=== PATIENT | male | born 1945 | race Caucasian/White ===

== ENCOUNTER 2018-02-01 22:36 | Emergency (ER) | payer MEDICARE, OTHER, SELFPAY ==
[2018-02-01 22:40] VITALS: BP 138/80; PULSE 72; RESP 19; TEMP 36.6; O2SAT 100; BMI 26.2
--- NOTE | 2018-02-01 23:24 | ED_ITS ---
HPI - Abdominal Pain General Chief Complaint: Abdominal Pain Stated Complaint: Abd Pain Time Seen by Provider: 02/01/18 22:49 History of Present Illness HPI narrative: HPI 72-year-old male with history of BPH presents for evaluation of resolved severe bilateral lower abdominal/suprapubic cramping that occurred while he was seated. Patient present to the emergency department for evaluation pain, upon being given a warm blanket the patient felt an urge to defecate, he went to the bathroom past a large bowel movement and had near complete complete resolution of his symptoms. Prior to presentation the patient attempted to stool at home and attempt to relieve the symptoms, the patient is unable to stool but while bearing down heavily he had a brief period of LOC with immediate return to baseline level of consciousness. Denies nausea and vomiting. Denies dysuria and urinary frequency. Denies a history of atrial fibrillation. No prior abdominal surgeries. M/S/F/SocHx notable for: please see HPI; remainder reviewed with patient and in chart. ROS: Negative constitutional, eye, cardiovascular, pulmonary, GI, , MSK, skin , neurologic, psychiatric, endocrine unless noted in the HPI. Exam Gen: Pleasant, non-toxic appearing, resting comfortably. HEENT: NC, AT, PEERL, EOMI. Resp: Clear to auscultation bilaterally, normal work of breathing, no accessory muscle usage. Card: Regular rate and rhythm with no murmurs, rubs, or gallops, extremities warm and well perfused. GI: Non-tender to palpation throughout all quadrants, no focal tenderness at McBurney's point, negative Garvey's sign, non-distended, no rebound or guarding. : No suprapubic tenderness to palpation. MSK: No visible deformities, strength and tone without visually appreciable deficit. Skin: Normal color with no visible lesions. Neuro: AO x 3, no facial asymmetry, vision and hearing WNL. Psych: Mood and affect appropriate. MDM Previous chart, nursing note, labs, imaging, and vitals reviewed. A: 72-year-old male with a history of BPH presents for evaluation of resolved severe bilateral cramping abdominal pain, pain resolved after a large bowel movement, also had an episode of syncope while attempting to stool prior to presentation. DDx & Evaluation: patient asymptomatic at time of evaluation, patient states that he feels significantly improved, declining further evaluation. Reviewed with the patient was a possibility that his symptoms represent a serious intrabdominal process or cardiac problem. Mesenteric ischemia, AAA, dissection, intermittent volvulus, or another acute process remain on the differential. Alternatively, the patient symptoms may be secondary to cramping with a vasovagal syncope episode at home. With respect to the patient's cardiac problems reviewed with the patient was possibility of an intermittent heart block, arrhythmia, or other serious problem that would be missed without for evaluation. The patient declined further evaluation care, head intact insight and judgment will return to care as needed. Impression: resolved abdominal pain (please reference below for remainder of encounter information) [facility]LY [facility] Social History Smoking Status: Never smoker Exam Initial Vital Signs Initial Vital Signs: Vital Signs Temperature 97.9 F 02/01/18 22:40 Pulse Rate 72 02/01/18 22:40 Respiratory Rate 19 02/01/18 22:40 Blood Pressure 138/80 H 02/01/18 22:40 Pulse Oximetry 100 02/01/18 22:40 Course Orders Ordered: ED Orders 02/01/18 22:56 Urine Microscopic Stat Vital Signs - 8 hr 02/01/18 22:40 Temperature 97.9 F Pulse Rate 72 Respiratory Rate 19 Blood Pressure 138/80 H Pulse Oximetry 100
[2018-02-01 23:40] LABS: Bacteria Urine Few (2-10); RBC Urine 0-1/HPF (0-5/HPF); WBC Urine 30-100/HPF (0-5/HPF)
[2018-02-01 23:41] LABS: Culture Indicated Urine Specimen Cultured; Squamous Epithelial Cell Urine 0-1 /HPF
[2018-02-01 23:52] VITALS: BP 135/77; PULSE 78; RESP 16; O2SAT 97
== END 2018-02-01 23:52 | disposition home or self-care (01) ==
PROVIDERS: Emergency Provider Emergency Medicine
DX: R10.9 Unspecified abdominal pain (principal)
CPT/HCPCS: 81003; 81015; 87086; 99282

== ENCOUNTER → 2020-02-16 12:29 | Outpatient (CLI) | payer MEDICARE, OTHER, SELFPAY ==
--- NOTE | 2020-02-16 | DI.RAD.S_ITS ---
PROCEDURE: XR FOOT LT MIN 3V INDICATIONS: LEFT FOOT PAIN TECHNIQUE: 3 views of the foot were acquired. COMPARISON: None. FINDINGS: Bones: No fractures or dislocations. No suspicious bony lesions. Age-appropriate bony degenerative changes are seen. Plantar and Achilles calcaneal spurs are seen. Incidental note is made of an accessory ossicle, an os peroneum. Soft tissues: No tibiotalar joint effusion. Achilles tendon appears normal. IMPRESSION: Age-appropriate degenerative changes are seen, including plantar and Achilles calcaneal spurs. Dictated by: Eugenio Tarango M.D. on 02/16/2020 at 12:02 Approved by: Eugenio Tarango M.D. on 02/16/2020 at 12:03
== END ==
PROVIDERS: PCP Internal Medicine; Referring Provider Physician Assistant; Visit Provider Physician Assistant
DX: M79.672 Pain in left foot (principal); M77.32 Calcaneal spur, left foot
CPT/HCPCS: 73630

== ENCOUNTER → 2020-04-08 18:32 | Outpatient (ROUT) | payer MEDICARE, OTHER, SELFPAY | PROVIDERS: PCP Internal Medicine; Visit Provider Internal Medicine | DX: N39.0 Urinary tract infection, site not specified (principal) | CPT/HCPCS: 87077; 87086; 87186 ==

== ENCOUNTER → 2020-06-27 19:01 | Outpatient (ROUT) | payer MEDICARE, OTHER, SELFPAY ==
[2020-06-27 19:42] LABS: Add Manual Diff / Slide Review NO; Basophils Absolute Auto 100 /uL (0-100); Basophils Percent Auto 0.6 % (0-2); Eosinophils Absolute Auto 300 /uL (0-450); Eosinophils Percent Auto 3.4 % (2-4); Hematocrit 38.2 % (41-53); Hemoglobin 12.7 g/dL (13.5-17.5); Lymphocytes Absolute Auto 2300 /uL (1100-4500); Mean Corpuscular HGB Conc 33.2 % (30-36); Mean Corpuscular Volume 90.4 fL (80-100); Monocytes Absolute Auto 700 /uL (0-900); Monocytes Percent Auto 6.5 % (3-14); Neutrophils Absolute Auto 6700 /uL (1500-7000); Neutrophils Percent Auto 66.5 % (50-75); Platelet Count 394 X10^3/uL (150-400); Red Blood Cell Count 4.23 X10^6/uL (4.5-5.9); Red Cell Distribution Width 15.6 % (11.6-14.8); White Blood Cell Count 10.1 X10^3/uL (4.5-11.0)
[2020-06-27 19:50] LABS: Alanine Aminotransferase 23 IU/L (<50); Albumin Globulin Ratio 1.3 (1.0-2.8); Alkaline Phosphatase 69 U/L (38-126); Aspartate Aminotransferase 27 IU/L (17-59); BUN Creatinine Ratio 24.1 (6-22); Bilirubin Total 0.5 mg/dL (0.2-1.3); Blood Urea Nitrogen 28 mg/dL (9-20); Calcium 10.1 mg/dL (8.4-10.2); Carbon Dioxide 26 mmol/L (22-32); Chloride 106 mmol/L (98-107); Cholesterol 207 mg/dL (140-199); Estimated Glomerular Filt Rate > 60.0 mL/min (>60); Globulin 3.1 g/dL (1.7-4.1); Glucose 79 mg/dL (80-110); HDL Cholesterol 55 mg/dL (40-60); HEMOLYSIS < 15 (0-50); LDL Cholesterol Calculated 134 mg/dL (<100); Potassium 4.3 mmol/L (3.4-5.1); Sodium 141 mmol/L (137-145); Total Protein 7.1 g/dL (6.3-8.2); Triglycerides 88 mg/dL (35-150)
[2020-06-27 20:20] LABS: TSH w/ Reflex to FT4 2.45 uIU/mL (0.47-4.68)
== END ==
PROVIDERS: PCP Internal Medicine; Visit Provider Internal Medicine
DX: N39.0 Urinary tract infection, site not specified (principal); R53.83 Other fatigue; N41.0 Acute prostatitis; E78.2 Mixed hyperlipidemia
CPT/HCPCS: 80053; 80061; 84443; 85025; 87077; 87086; 87186

== ENCOUNTER → 2020-11-13 16:34 | Outpatient (CLI) | payer MEDICARE, OTHER, SELFPAY ==
--- NOTE | 2020-11-13 16:38 | DI.RAD.S_ITS ---
PROCEDURE: XR ABDOMEN 1V INDICATIONS: NO BM X7 DAYS, NOT PASSING GAS, NAUSEA,HEAVING, R/O ILEUS TECHNIQUE: One view of the abdomen acquired. COMPARISON: None. FINDINGS: Surgical changes and devices: None. Bowel: Bowel gas pattern is normal. Soft tissues: Calcifications project over the bilateral kidneys. Visualized solid organ contours appear normal in size. Bones: No suspicious bony lesions. IMPRESSION: 1. No evidence of bowel obstruction. 2. Calcifications projecting over the bilateral kidneys. Dictated by: Samir Dooley M.D. on 11/13/2020 at 16:02 Approved by: Samir Dooley M.D. on 11/13/2020 at 16:02
== END ==
PROVIDERS: Referring Provider Nurse Practitioner Family; Visit Provider Nurse Practitioner Family
DX: R11.0 Nausea (principal); E86.0 Dehydration; R53.83 Other fatigue; N28.89 Other specified disorders of kidney and ureter
CPT/HCPCS: 74018

== ENCOUNTER → 2022-06-02 08:58 | Outpatient (CLI) | payer MEDICARE, OTHER, SELFPAY ==
--- NOTE | 2022-06-02 09:01 | DI.MRI.S_ITS ---
PROCEDURE: MR LUMBAR SPINE WO CON INDICATIONS: Low back pain, unspecified TECHNIQUE: Noncontrast sagittal T1 spin echo and T2 fast echo, sagittal STIR, and T2 fast spin echo through the lumbar spine. In cases with scoliosis, additional coronal T2 fast spin echo may be performed. COMPARISON: None. FINDINGS: Image quality: Excellent. Alignment and Curvature: There is normal bony alignment. Bone Marrow: Modic type 1 edematous endplate changes noted at L4-5. Min transitional anatomy present. There is partial lumbarization of the S1 vertebral body. Spinal Cord: Conus medullaris terminates at the L1 level. Visualized cord demonstrates normal signal and size. Paraspinous Soft Tissues: No paravertebral masses. T12-L1: Normal appearance. L1-L2: Normal appearance. L2-L3: Normal appearance. L3-L4: Disc space narrowing and circumferential bulge with hypertrophic facet joints results in mild central stenosis. Mild bilateral foraminal stenosis greater on the right L4-L5: Disc space narrowing and surface bulge with hypertrophic facet joints and ligamentum flavum laxity results in severe central stenosis with associated nerve root redundancy probable edema. Moderate bilateral foraminal stenosis L5-S1: Disc space narrowing with circumferential disc bulge and hypertrophic facet joints results in moderate central stenosis. Moderate bilateral foraminal stenosis IMPRESSION: Multilevel degenerative disc disease and arthropathy results in varying degrees of central and foraminal stenosis including severe central stenosis L4-5 Approved by: Cleve Almonte M.D. on 06/02/2022 at 10:18
== END ==
PROVIDERS: PCP Student in an Organized Health Care Education/Training Program; Referring Provider Physical Medicine & Rehabilitation Pain Medicine; Visit Provider Physical Medicine & Rehabilitation Pain Medicine
DX: M51.36 Other intervertebral disc degeneration, lumbar region (principal); M54.50 Low back pain, unspecified; M48.061 Spinal stenosis, lumbar region without neurogenic claudication
CPT/HCPCS: 72148

== ENCOUNTER → 2023-08-28 15:31 | Outpatient (CLI) | payer MEDICARE, OTHER, SELFPAY ==
--- NOTE | 2023-08-28 15:34 | DI.CT.S_ITS ---
PROCEDURE: CT LUMBAR SPINE WO CON INDICATIONS: Spinal stenosis, lumbar region TECHNIQUE: Noncontrast 0.8 mm thick sections acquired from the T12 level to the sacrum. Sagittal and coronal reformats were constructed. For radiation dose reduction, the following was used: automated exposure control. COMPARISON: [facility], RF, LUMBAR TRANSFORAMINAL MAURIZIO, 07/23/2023, 10:46. [facility], CT, CT KUB, 10/02/2022, 11:57. [facility], CR, XR LUMBAR SPINE WITH OBLIQUES PLUS FLEXION EXTENSION, 05/16/2022, 10:45. FINDINGS: Image quality: This examination is limited by involuntary motion artifact. Bones: There is normal bony alignment. No acute vertebral body compression fractures. No suspicious lytic or blastic bony lesions. No pars defects. This patient has transitional lumbar anatomy. For the purposes of this examination, the level with the last pair of ribs is considered to be T12. By this numbering scheme, there is a transitional disc seen at S1-S2. T12-L1: Bridging anterior osteophytes are seen. No significant neural foraminal or central canal narrowing can be seen. L1-L2: There are bridging anterior osteophytes seen. No significant neural foraminal or central canal narrowing can be seen. L2-L3: Bridging anterior osteophytes are seen at this level. Mild generalized disc bulge is seen. Mild facet joint hypertrophy is seen. There is mild left-sided and [id number] right-sided neural foraminal narrowing. No significant central canal narrowing is seen. L3-L4: Mild loss of disc height is seen. Mild to moderate disc bulge is seen at this level. There is a superimposed central disc protrusion. Mild to moderate facet hypertrophy is seen. There is at least moderate right-sided and [id number] left-sided neural foraminal narrowing. Moderate central canal narrowing is seen. L4-L5: At least moderate loss of disc height is seen. Endplate irregularity and sclerosis can be seen. At least moderate disc bulge is seen at this level. There is at least moderate facet hypertrophy seen. At least moderate bilateral neural foraminal narrowing can be seen. Moderate to severe central canal narrowing is seen. L5-S1: At least moderate loss of disc height is seen at this level. At least moderate disc bulge is seen. Posteriorly directed endplate osteophytes are seen. Moderate facet hypertrophy can be seen. Moderate to severe bilateral neural foraminal narrowing is seen. Moderate central canal narrowing is seen. S1-S2: A transitional, rudimentary disc can be seen. Soft tissues: No retroperitoneal masses or hematomas. Visualized aorta is normal in caliber. Atherosclerotic calcification is noted. Colonic diverticulosis is seen, without findings of active diverticulitis. Both kidneys demonstrate nonobstructing stones. Within the left proximal ureter, there is an obstructing stone measuring 4-5 mm and 900 Hounsfield units, as on series 2, image 233. Moderate associated left-sided hydronephrosis is seen. IMPRESSION: Multiple levels of lumbar spine degenerative change can be seen, which are worst inferiorly. Note is made of an obstructing stone within the left proximal ureter measuring 4-5 mm, with associated left-sided hydronephrosis. This is new compared to the CT dated 10/02/2022. Transitional lumbar anatomy, with a rudimentary disc seen at the S1-S2 level. Additional findings: Nonobstructing bilateral renal stones Diverticulosis, without active diverticulitis Note: Case discussed by telephone with Dr. Chandra at 6:15 p.m. Frio time on August 28, 2023. Dictated by: Eugenio Tarango M.D. on 08/28/2023 at 17:08 Approved by: Eugenio Tarango M.D. on 08/28/2023 at 17:19
== END ==
PROVIDERS: PCP Student in an Organized Health Care Education/Training Program; Referring Provider Orthopaedic Surgery Orthopaedic Surgery of the Spine; Visit Provider Orthopaedic Surgery Orthopaedic Surgery of the Spine
DX: M48.062 Spinal stenosis, lumbar region with neurogenic claudication (principal); M47.816 Spondylosis without myelopathy or radiculopathy, lumbar region; M47.817 Spondylosis without myelopathy or radiculopathy, lumbosacral region; N13.2 Hydronephrosis with renal and ureteral calculous obstruction; K57.90 Diverticulosis of intestine, part unspecified, without perforation or abscess without bleeding
CPT/HCPCS: 72131

== ENCOUNTER → 2023-10-24 13:45 | Outpatient (CLI) | payer MEDICARE, OTHER, SELFPAY ==
--- NOTE | 2023-10-24 13:51 | DI.RAD.S_ITS ---
PROCEDURE: XR CHEST 2V INDICATIONS: COUGH TECHNIQUE: 2 views of the chest were acquired. COMPARISON: None. FINDINGS: Surgical changes and devices: None. Lungs and pleura: Lungs are clear. No pleural effusions or pneumothorax. Mediastinum: Mediastinal contours are normal. Heart size is normal. Bones and chest wall: No suspicious bony abnormalities. Soft tissues appear unremarkable. IMPRESSION: No acute cardiopulmonary abnormality is seen. Dictated by: Kalia Membreno M.D. on 10/24/2023 at 16:08 Approved by: Kalia Membreno M.D. on 10/24/2023 at 16:08
== END ==
LOC: RAD 13:49
PROVIDERS: PCP Student in an Organized Health Care Education/Training Program; Referring Provider Nurse Practitioner Family; Visit Provider Nurse Practitioner Family
DX: R05.9 Cough, unspecified (principal); R53.81 Other malaise
CPT/HCPCS: 71046

== ENCOUNTER → 2023-12-16 10:51 | Outpatient (CLI) | payer MEDICARE, OTHER, SELFPAY ==
[2023-12-16 11:38] LABS: Add Manual Diff / Slide Review NO; Basophils Absolute Auto 100 /uL (0-100); Basophils Percent Auto 0.8 % (0-2); Eosinophils Absolute Auto 200 /uL (0-450); Eosinophils Percent Auto 1.9 % (2-4); Hematocrit 37.7 % (41-53); Hemoglobin 12.6 g/dL (13.5-17.5); Lymphocytes Absolute Auto 2300 /uL (1100-4500); Lymphocytes Percent Auto 23.5 % (25-40); Mean Corpuscular HGB Conc 33.5 % (30-36); Mean Corpuscular Hemoglobin 30.2 PG (26-34); Mean Corpuscular Volume 90.2 fL (80-100); Monocytes Absolute Auto 600 /uL (0-900); Monocytes Percent Auto 6.3 % (3-14); Neutrophils Absolute Auto 6600 /uL (1500-7000); Neutrophils Percent Auto 67.5 % (50-75); Platelet Count 603 X10^3/uL (150-400); Red Blood Cell Count 4.18 X10^6/uL (4.5-5.9); Red Cell Distribution Width 15.1 % (11.6-14.8); White Blood Cell Count 9.8 X10^3/uL (4.5-11.0)
[2023-12-16 11:39] LABS: Hemoglobin A1C% w Est Avg Glu 5.4 % (4.0-6.0)
[2023-12-16 12:10] LABS: BUN Creatinine Ratio 17.3 (6-22); Blood Urea Nitrogen 24 mg/dL (9-20); Calcium 10.3 mg/dL (8.4-10.2); Carbon Dioxide 24 mmol/L (22-32); Chloride 108 mmol/L (98-107); Estimated Glomerular Filt Rate 53 mL/min (>60); Glucose 89 mg/dL (80-110); HEMOLYSIS < 15 (0-50); Potassium 5.3 mmol/L (3.4-5.1); Sodium 140 mmol/L (137-145)
== END ==
PROVIDERS: PCP Student in an Organized Health Care Education/Training Program; Referring Provider Orthopaedic Surgery Orthopaedic Surgery of the Spine; Visit Provider Orthopaedic Surgery Orthopaedic Surgery of the Spine
DX: R73.9 Hyperglycemia, unspecified (principal); Z01.812 Encounter for preprocedural laboratory examination
CPT/HCPCS: 36415; 80048; 83036; 85025

== ENCOUNTER → 2023-12-18 12:56 | Outpatient (CLI) | payer MEDICARE, OTHER, SELFPAY | LOC: RESP 12:57 | PROVIDERS: PCP Student in an Organized Health Care Education/Training Program; Referring Provider Orthopaedic Surgery Orthopaedic Surgery of the Spine; Visit Provider Orthopaedic Surgery Orthopaedic Surgery of the Spine | DX: Z01.818 Encounter for other preprocedural examination (principal) | CPT/HCPCS: 93005; 93010 ==

== ENCOUNTER 2023-12-30 06:04 | Inpatient (IN) | payer MEDICARE, OTHER, SELFPAY ==
[2023-12-25 12:26] VITALS: BMI 22.9
[2023-12-30] VITALS (16 sets, daily range): BP systolic 108–170; BP diastolic 52–115; PULSE 63–80; RESP 15–22; TEMP 36.1–37.2; O2SAT 94–100; BMI 23.4
--- NOTE | 2023-12-30 | DI.RAD.S_ITS ---
PROCEDURE: XR LUMBAR SPINE 2-3V INDICATIONS: L4-5 TLIF, L5-S1 HEMILAMINECTOMY TECHNIQUE: 2 spot fluoroscopic intraoperative images of the lower lumbar spine. COMPARISON: [facility], [place], CT LUMBAR SPINE WO CON, 08/28/2023, 15:39. FINDINGS: Spot fluoroscopic intraoperative images demonstrate postsurgical changes from posterior fixation at L4-5 with pedicle screws and interbody rods and an interbody spacer. L5-S1 hemilaminectomy also noted on frontal view as indicated by the clinical history. Transitional lumbosacral anatomy again noted. IMPRESSION: Intraoperative images demonstrate expected postsurgical changes at L4-5 and L5-S1. Transitional spinal anatomy. Approved by: Ciaran Quintero M.D. on 12/30/2023 at 10:53
[2023-12-30] MEDS: LACTATED RINGERS 1,000 ML 42 ML IV ×2 (07:02→08:41)
[2023-12-30] MEDS: GABAPENTIN 300 MG CAPSULE PO (07:37)
[2023-12-30] MEDS: ACETAMINOPHEN 325 MG TABLET 975 MG PO (07:37)
--- NOTE | 2023-12-30 07:40 | PM.PREOP ---
Pre-operative Note Interval Note History & Physical reviewed/Exam performed by Physician: Yes Changes to H&P: No
[2023-12-30] MEDS: CEFAZOLIN 2 GM/100 ML PREMIX 100 ML IV ×2 (08:00→17:00)
--- NOTE | 2023-12-30 08:26 | SUR.OPER ---
Prone on spine table, head in foam head support, padded chest and pelvic supports, gel pad at knees, lower legs supported by pillows; nipples, genitalia and toes free of pressure, arms secured on foam padded arm boards at <90 degrees abduction. Tape over blanket at thigh secured to table.
[2023-12-30] MEDS: BUPIVACAINE 0.25% (PF) 60 ML, EPINEPHrine 0.15 MG INJ (08:42)
[2023-12-30] MEDS: BUPIVACAINE LIPOSOME 266 MG/20 ML VIAL INJ (08:43)
[2023-12-30] MEDS: HYDROMORPHONE 1 MG INJ IV (10:51)
[2023-12-30] MEDS: hydrOXYzine 50 MG/ML INJ 25 MG IM (10:52)
--- NOTE | 2023-12-30 10:53 | P.OP_ITS ---
Operative Date/Time/Diagnoses Date of procedure: 12/30/23 Time of procedure: 07:40 Pre-op diagnosis: 1. L4-5, L5-S1 spinal stenosis with neurogenic claudication 2. L4-5, L5-S1 foraminal stenosis Post-op diagnosis: same Procedure & Clinicians Procedure: 1. L4-5 Postero-lateral and posterior interbody fusion 2. L4-5 interbody cage placement. 3. L4-5 decompressive laminectomy with bilateral facetecomies 4. L4-5 Posterior non-segmental instrumentation 5. L5-S1 right hemilaminectomy 6. [place] of bone marrow from iliac crest 7. Utilization of microsurgical technique and operating microscope Same procedure as scheduled: Yes Indications: Patient has been having chronic back pain and worsening lumbar radiculopathy and symptoms of neurogenic claudication. Patient was found have severe spinal stenosis centrally and in the neural foramen at L4-5 level and with lateral recess stenosis at L5-S1 level correlating with his symptoms. Patient failed multiple conservative management with worsening pain weakness and numbness in his lower extremity. Patient has been having difficulty performing activity of daily living. After discussing risks benefits of treatment options, patient elected proceed with surgery. Surgeon: Fernie Diaz [employer] Tank Car Unloader: Nataliya Walton Click Yes if Unassisted: No Anesthesia Type: General Operative Notes Closure Type: primary Specimen(s): none sent Prosthetic devices, grafts, tissues, transplants, or devices: Globus revolve screws, Rise cage Estimated Blood Loss (mL): 50 Blood products transfused: none Procedure in detail: Patient was seen in the preoperative area. Risks and benefits of the surgery was discussed with the patient. Informed consent was obtained from the patient and placed in the chart. Surgical site was marked. Patient was taken to the operative room. General anesthesia was administered. Prophylactic antibiotic was given to the patient less than 30 min before the incision was made. Patient was placed into a prone position on the Yahir table. Patient's back was then prepped and draped in the sterile fashion. Time-out was performed at this time. Using AP and lateral C-arm imaging the interval between L4-5 was identified and marked on patient's back. A 2 inch incision 2 in from midline was made on the right side first. The fascia was incised in line with skin incision. Globus MARS retractors was placed inside the incision and docked onto the L4 lamina. Using microsurgical technique and operating microscope, a L4 laminectomy and L4- 5 facetectomy was performed using a Kerrison rongeur. The laminectomy and facetectomy was performed in order to decompress patient's cauda equina as well as the nerve roots exiting at the L4-5 level. The disc space at L4-5 was identified. And a total diskectomy was performed at L4-5 level. The endplates were decorticated using a rasp and shaver. The total diskectomy and decortication was performed at L4-5 level in order to to accomplish a L4-5 fusion. The local bone from the laminectomy and facetectomy was saved for local bone grafting. After the total diskectomy and decortication was completed, DBM bone graft material was combined with local bone that was harvested earlier. At this time, a separate skin is incision was made over the iliac crest. A Jamshidi needle was inserted into the iliac crest through a separate skin incision. 5 cc of bone marrow aspiration was obtained through the separate skin incision using a Jamshidi needle from the iliac crest. The bone marrow aspiration was combined with local bone and the DBM bone grafting material. The bone grafting material was placed into the L4-5 interbody space along with a expandable cage. The cage was expanded to its maximum height using the torque limiting screwdriver. At this time the MARS retractor was redirected over the L5 lamina. Using microsurgical technique and operating microscope, a L5-S1 heminectomy was performed using the Kerrison rongeur. The ligamentum flavum was also resected at the side of the hemilaminectomy for further decompression of the epidural space. At this time a mirror image incision was made on the left side. The fascia was incised in line with the skin incision. Globus MARS retractor was inserted and docked onto the L4-5 posterolateral gutter. Using the power drill, posterior- lateral decortication was performed at L4-5 level until bleeding cortical bone was identified. The remaining bone grafting material was placed into the L4-5 posterior lateral gutter he order to accomplish posterolateral fusion at the L4- 5 level. Using the double C-arm technique, pedicle screws were placed into the L4 and L5 pedicles bilaterally. This was done by placing the Jamshidi needle into the pedicles, then placing the guidewires over the Jamshidi needle, and finally placing the cannulated screws over the guidewires bilaterally. After the pedicle screws were placed, 2 titanium rods was locked into the heads of the pedicle screws using locking caps and torque limiting screwdriver. After all the hardware was placed, and confirmed with AP and lateral C-arm imaging, the wound was then irrigated with sterile normal saline and packed with Ray-Gerardo gauze for 3 min to accomplish hemostasis. After the gauze was removed the deep fascia was closed with #1 Vicryl suture. The subcutaneous layer was closed with 2-0 Vicryl. The skin was closed with skin tai. Patient tolerated the procedure well. There were no complications. Neuro monitoring was utilized during the procedure for monitoring of patient's neurological status which was stable throughout entire procedure. The Operation could not have been safely performed without compromising the technical result or length of the procedure, without the assistance of a skilled medical administrative assistant. The medical administrative assistant was medically necessary for proper positioning, retraction and manipulation of instruments, proper exposure, surgical preparation, and manipulation of tissue. Complications: none Post-operative Condition: stable Disposition: PACU Plan for aftercare: Admit to inpatient hospital
[2023-12-30] MEDS: MEPERIDINE 50 MG/ML INJ 25 MG IV (11:20)
[2023-12-30] MEDS: OXYCODONE IR 5 MG TABLET PO (11:23)
[2023-12-30] MEDS: HYDROMORPHONE 0.5 MG INJ IV (12:08)
[2023-12-30] MEDS: LACTATED RINGERS 1,000 ML 125 ML IV ×2 (12:09→21:54)
--- NOTE | 2023-12-30 12:49 | PT.IIE ---
Current Diagnoses Spinal stenosis, lumbar region without neurogenic claudication (12/30/23) Spinal stenosis, lumbar region with neurogenic claudication (12/30/23) Surgery Performed Operation Date: 12/30/23 07:45 Actual Procedures p L4-5 TLIF, L5-S1 hemilaminectomy(Not Applicable) - Fernie Diaz MD Surgical History (This Medical Record has been edited. Action required.) Hx of lithotripsy S/P TURP (status post transurethral resection of prostate) (~2019) S/P TURP (status post transurethral resection of prostate) (09/2022) Medical History (This Medical Record has been edited. 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 Ramps, no steps Home Environment Standard Height Toilet,Tub/ Shower Home Equipment Grab Bars Near Toilet Employment Status Retired Additional Social History Comment Pt states that he built his house for his chiro patients and it is accessible but it does not sound like the showers are modified in any way. He has one walking stick at home M2 PT-IP Current Condition Start: 12/30/23 12:05 Freq: NEEDED Status: Active Protocol: Document 12/30/23 12:04 MB (Rec: 12/30/23 12:49 MB [id number]) Physical Therapy Current Condition Current Condition Evaluation Date 12/30/23 Treatment Diagnosis S/p TLIF M3 PT-IP Subjective Start: 12/30/23 12:05 Freq: NEEDED Status: Active Protocol: Document 12/30/23 12:04 MB (Rec: 12/30/23 12:49 MB [id number]) Subjective Physical Therapy Visit Type Type Initial Evaluation Visit Start Time 12:04 Visit Stop Time 12:35 Number of ELECTRICAL MAINTENANCE WORKER Visits 0 Physical Therapy Visit Comments Patient Comments Pt is agreeable to PT and hopes to get up to use the urinal. Pt just arrived to the floor. Therapy Pain Assessment Pain When Pain Assessed At Rest Pain Present Pain Present Pain Reported Location low back Intensity 5 Scale Used Numeric (0 - 10) Description Acute M4 PT-IP Mobility and Gait Start: 12/30/23 12:05 Freq: NEEDED Status: Active Protocol: Document 12/30/23 12:04 MB (Rec: 12/30/23 12:49 MB [id number]) PT-Bed Mobility Assessment Supine to Sit Supine to Sit Contact Guard Assistance,1 Person Assistance,Head of Bed Elevated,Bedrails Sit to Supine Sit to Supine Minimal Assistance,1 Person Assistance,Head of Bed Elevated,Bedrails Scooting Scooting to Edge of Bed Contact Guard Assistance Scooting Up and Down in Bed Contact Guard Assistance PT-Transfer Assessment Sit to and From Stand Sit to and from Stand Moderate Assistance,1 Person Assistance,Use of Upper Extremities Equipment Transfer Assistive Device Gait Belt,Front Wheeled Walker Orthotic/Prosthetic Devices or Brace: No Comments Mobility Comments Pt found in left side lying and returned to left side lying and while educated in log roll technique, he does not actually roll with PT. He is knowledgeable about no B.L .T. already. PT attempts to check orthostatics but pt con' t to move right arm when talking and distracted and so machine reads several times and BP is high. Nsg nearby and aware. BP medication was held d/t blood loss and to avoid orthostasis post-op. Left side lying BP and HR in R UE: 132/ 86, 72; sitting (machine takes twice to read) 166/100, 80; standing at walker: 189/103, 100. Pt con't to move arm and motion artifact even noted on machine Gait Assessment Gait Gait Assistance Required: Minimum Assistance,1 Person Assist Distance (Feet) 1 Able to Maintain Weight Bearing Status Yes During Gait Assistive Devices Assistive Device Gait Belt,Front Wheeled Walker Orthotic/Prosthetic Devices or Brace: No Gait Deviations General Gait Pattern Antalgic,Decreased Stride Length,Decreased Feet Clearance,Flexed Trunk,Wide Based Gait Comments Gait Comments Left side stepping up to HOB after DIGITAL PHOTOGRAPHER assists pt to use the urinal in standing PT-Balance Assessment Sitting Balance and Reactions Static Sitting Balance Ability Good Dynamic Sitting Balance Ability Fair Standing Balance and Reactions Static Standing Balance Ability Fair Dynamic Standing Balance Ability Fair Device Used RW M5 PT-IP Objective Assessments Start: 12/30/23 12:05 Freq: NEEDED Status: Active Protocol: Document 12/30/23 12:04 MB (Rec: 12/30/23 12:[id number] Orientation Orientation/Cognition Level of Alertness Lethargic Orientation Name,Age,Birthday,Month,Date, Year,Day of Week,Place, Situation Language Function Ability No Deficits Noted Safety Awareness Decreased Safety Awareness Memory Description No Deficits Noted Comments Pt is lethargic though oriented, does repeat himself occ Gross Range of Motion Upper Extremity ROM Impairments Defer to OT Lower Extremity ROM Assessment Within Functional Limits Strength Comments Strength Comments MMT deferred this afternoon as pt just arrives to floor post -op Sensation Assessment Comments Sensation Comments Pt reports B toe tingling at baseline that is better post- op M6 PT-IP Treatment Start: 12/30/23 12:05 Freq: NEEDED Status: Active Protocol: Document 12/30/23 12:04 MB (Rec: 12/30/23 12:49 MB [id number]) Physical Therapy Treatment Education Education Provided Precautions,Weight Bearing Status,Post-Op Packet,Safety Other Treatments Other Treatment Performed Back precautions, log roll, orthostatic checking ed and attempted to perform M7 PT-IP Assessment and Plan Start: 12/30/23 12:05 Freq: NEEDED Status: Active Protocol: Document 12/30/23 12:04 MB (Rec: 12/30/23 12:49 [id number]) PT Summary Assessment and Plan Potential Rehabilitation Potential Good Status of Condition at Evaluation Evolving Summary Impairments Pain,ROM,Strength,Balance, Sensation,Bed Mobility, Transfers,Gait,Activity Tolerance Progress Towards Goals Progressing Toward Goals Assessment Summary Pt is a gentleman presenting with lethargy and hypertension upon coming up to the floor post-op TLIF this morning. Pt reports 5/10 localized pain and is agreeable to therapy and hopeful about using urinal , which he does with the DIGITAL PHOTOGRAPHER. Pt returned to left side lying to nap after evaluation. He will benefit from acute and post-acute PT to improve mobility, balance and gait. Recommend up with nsg assistance as able. Pt may need RW for use at d/c. Goals Bed Mobility Goal Independent Transfer Goal Independent,Front Wheeled Walker Gait Goal Independent,Front Wheel Walker Gait Distance 100 Days to Meet Goals 3 Frequency of Treatment Frequency Of Treatment Twice a Day Treatment Plan Physical Therapy Treatment Plan Bed Mobility Training,Transfer Training,Gait Training, Therapeutic Exercise,Balance Retraining,Post Op Education, Discharge Planning,Hot or Cold Pack,Neuromuscular Re-ed, Coordination Retraining,Manual Therapy Precautions Lumbar Precautions Log Roll,No Twisting,Limit Bending,Lifting Restriction of 10 lbs,Gait Belt above Incisional Area Weight Bearing Status Weight Bearing Status Weight Bear as Tolerated Recommendations To Nursing Amount of Assist Needed 2 Person Assist Discharge Recommendations PT Discharge Recommendations Home with 24/ Assist Available,Outpatient PT Transportation Needs at Discharge Private Vehicle
--- NOTE | 2023-12-30 13:00 | PC.NURSE ---
Patient arrived to room 207 at 1150. He is A&OX4, VSS, on RA. Slightly hypertensive (didn't take home antihypertensive medication). He rates pain 5/10 to surgical site, denies numbness/tingling down bilateral legs. He is able to stand at edge of bed, with PT to urinate shortly after arriving. He lies back down and requests to rest. He is resting comfortably. Bed alarm on, call light in reach, IVF LR at 100 ml/hr, frequent rounding. Blanca is supportive at bedside.
--- NOTE | 2023-12-30 16:20 | OT.IP.EVAL ---
Current Diagnoses Spinal stenosis, lumbar region without neurogenic claudication (12/30/23) Spinal stenosis, lumbar region with neurogenic claudication (12/30/23) Surgery Performed Operation Date: 12/30/23 07:45 Actual Procedures p L4-5 TLIF, L5-S1 hemilaminectomy(Not Applicable) - Fernie Diza MD Past Medical History (This Medical Record has been edited. Action required.) BCC (basal cell carcinoma) History of COVID-19 (2020) HTN (hypertension) Kidney stone Situational anxiety Spinal stenosis Surgical History (This Medical Record has been edited. Action required.) Hx of lithotripsy S/P TURP (status post transurethral resection of prostate) (~2019) S/P TURP (status post transurethral resection of prostate) (09/2022) Occupational Therapy Inpatient Evaluation/Re-Eval M1 PT/OT-IP Prior Functional Status Start: 12/30/23 16:10 Freq: NEEDED Status: Active Protocol: Document 12/30/23 16:10 [facility] (Rec: 12/30/23 16:32 [facility] [id number]) Medical Review Prior Functional Status Medical History Reviewed Yes Diet/Fluid Consistency Regular Communication WNLs Mobility and Gait I. Prior to surgery pt able to walk 1/2 miles but needing to stop ,rest, and stretch after every 100 yards. 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 Social History Household Members spouse Living Arrangements House Number of Stairs To Enter/Railing? 2 step with bilateral rails to enter the house. Home Environment Standard Height Toilet,Tub/ Shower Home Equipment Hand Held Shower Employment Status Retired Additional Social History Comment Pt has hiking sticks. M2 OT-IP Current Condition Start: 12/30/23 16:10 Freq: Status: Active Protocol: Document 12/30/23 16:10 [facility] (Rec: 12/30/23 16:32 [facility] [id number]) Occupational Therapy Current Condition Current Condition Evaluation Date 12/30/23 Treatment Diagnosis S/P L4-5 TLIF, L5-S1 hemilaminectomy Diagnosis Onset Date 12/30/23 Post Operative Precautions Lumbar Precautions Log Roll,No Twisting,Limit Bending,Lifting Restriction of 10 lbs,Gait Belt above Incisional Area M3 OT- IP Subjective and Pain Start: 12/30/23 16:10 Freq: Status: Active Protocol: Document 12/30/23 16:10 [facility] (Rec: 12/30/23 16:32 [facility] [id number]) OT- Subjective Occupational Therapy Visit Type Type Initial Evaluation Visit Start Time 15:40 Visit Stop Time 16:20 Occupational Therapy Visit Comments Patient Comments Pt wanting to get up to use the urinal and walk around. Pt's in the room. Patient/Caregiver Goals To go home. OT Pain Assessment Pain When Pain Assessed At Rest Pain Present Pain Present Pain Reported Location low back Intensity 5 Scale Used Numeric (0 - 10) M4 OT- IP ADL's Start: 12/30/23 16:10 Freq: Status: Active Protocol: Document 12/30/23 16:10 [facility] (Rec: 12/30/23 16:32 [facility] [id number]) OT [id number] Comments OT Self-Feeding Comments Not at meal time. OT ADL-Grooming Comments OT Grooming Comments Not performed. OT ADL-Oral Care Comments Oral Care Comments Pt not wanting to do at this time. Educated to spit into a cup versus hinge at his hips to spit in order to best follow his back precautions. OT ADL-Dressing General Eval Lower Body Dressing Ability Maximum Assistance Comments OT Dressing Comments Educated pt on LB dressing equipment to help with LB dressing needs. OT ADL-Toileting General Evaluation Toileting Ability Contact Guard Assistance Areas Needing Assistance Manage Clothing Comments OT Toileting Comments Pt able to stand with CGA and use of urinal and assist for gown management needs. Educated best to stand and use of wet ones to best follow his back precautions. Suggested use of bsc to increased ease to stand initially if needed or use of urinal at night. OT ADL-Bathing Comments OT Bathing Comments Pt will benefit from a shower chair at home to use. M5 OT- IP IADL's Start: 12/30/23 16:10 Freq: Status: Active Protocol: Document 12/30/23 16:10 [facility] (Rec: 12/30/23 16:32 [facility] [id number]) OT-Instrumental Activities of Daily Living Deficits IADL Deficits Identified Deficits Home Safety Awareness Awareness of Need for Assistance at Home Good Awareness Ability to Problem Solve Emergency Able to Problem Solve Situations Home Safety Comments Pt a little groggy at this time and his to provide assist at home. Medication Management Medication Management Comments Best to have assist as pt is groggy. Money Management Money Management Comments Best to have assist as pt is groggy. Meal Preparation Meal Preparation Caregiver Provides Assist Holter Technician Holter Technician Caregiver Provides Assist M6 OT- IP Functional Cognition Start: 12/30/23 16:10 Freq: Status: Active Protocol: Document 12/30/23 16:10 [facility] (Rec: 12/30/23 16:32 [facility] [id number]) Cognitive Factors Limiting Selfcare Function Cognitive Ability Level of Alertness Alert,Drowsy Patient Orientation Name,Place,Situation Attention Span Ability Capable of Focused Attention, Capable of Sustained Attention Ability to Follow Commands Able to Follow One Step Commands with Increased Time, Able to Follow One Step Commands with Repetition Cognitive Comments Cognitive Assessment Comments Pt a little groggy and needing safety cues for log rolling and sit to stand to FWW. Able to educate his for gait belt management and how to assist for ADL and mobility needs. OT- Vision and Hearing OT- Hearing Assessment OT- Hearing Assessment WFL OT- Vision Assessment Visual Acuity WFL M7 OT- IP Mobility and Balance Start: 12/30/23 16:10 Freq: Status: Active Protocol: Document 12/30/23 16:10 [facility] (Rec: 12/30/23 16:32 [facility] [id number]) OT- Bed Mobility Assessment Supine to Sit Supine to Sit Assist Contact Guard Assistance Sit to Supine Sit to Supine Assist Contact Guard Assistance Scooting Scooting to Edge of Bed Standby Assistance Scooting Up and Down in Bed Standby Assistance OT-Transfer Assessment Sit to and From Stand Sit to and from Stand Minimal Assistance Transfers Transfer Ability Contact Guard Assistance Technique Transfer Destination Bed Devices Transfer Assistive Devices Gait Belt,Front Wheeled Walker Comments Mobility Comments CGA to help get his legs back into bed. ARMANI to stand and once on his feet CGA with FWW. At this time pt will benefit from use of FWW as having heavy use of his hands on the FWW. OT- Balance Assessment Sitting Balance and Reactions Static Sitting Balance Ability Good Dynamic Sitting Balance Ability Fair Standing Balance and Reactions Static Standing Balance Ability Fair Dynamic Standing Balance Ability Fair M8 OT- IP Objective Assessments Start: 12/30/23 16:10 Freq: Status: Active Protocol: Document 12/30/23 16:10 [facility] (Rec: 12/30/23 16:32 [facility] [id number]) OT Gross Range of Motion Upper Extremity Range of Motion Assessment Within Functional Limits OT Strength Upper Extremity Strength Assessment Within Functional Limits OT-Muscle Tone Assessment Muscle Tone WNL Yes M9 OT- IP Assessment and Plan Start: 12/30/23 16:10 Freq: Status: Active Protocol: Document 12/30/23 16:10 [facility] (Rec: 12/30/23 16:32 [facility] [id number]) OT Summary Assessment and Plan Potential Rehabilitation Potential Excellent Analytic Complexity at Evaluation Low Summary OT Impairments Pain,Strength,Balance, Functional Mobility,Dressing, Toileting,Bathing,Toilet Transfers,Shower Transfers Progress Towards Goals Progressing Toward Goals Assessment Summary Pt low complexity and main barriers are pain,steps and will benefit from use of LB dressing equipment or assist from his to best follow his back precautions. Pt to go home with his to assist when medically stable. Goals Grooming Goal Independent Dressing Goal Independent,Physical Damage Appraiser,Sock Aid Toileting Goal Independent Bathing Goal Standby Assistance Toilet Transfer Goal Independent Shower Transfer Goal Standby Assistance Patient/Caregiver Education Goal Caregiver Independent Assisting Patient Days to Meet Goals 5 Frequency of Treatment Frequency Of Treatment Once a Day Treatment Plan OT Treatment Plan ADL Training,Functional Mobility,Patient/Family Education,Discharge Planning Other Treatment Recommendations and Next caregiver training Treatment Focus Discharge Recommendations OT Discharge Recommendations Home with 08/04 Assist Available Home Equipment Needs BSC,LB dressing equipment, shower chair Transportation Needs at Discharge Private Vehicle
[2023-12-30] MEDS: ACETAMINOPHEN 325 MG TABLET 650 MG PO (16:27)
[2023-12-30] MEDS: OXYCODONE IR 10 MG TABLET PO (16:27)
[2023-12-30] MEDS: DOCUSATE 100 MG CAPSULE PO (21:53)
[2023-12-30] MEDS: SENNOSIDES 8.6 MG TABLET 17.2 MG PO (21:53)
[2023-12-31] MEDS: CEFAZOLIN 2 GM/100 ML PREMIX 100 ML IV (01:05)
[2023-12-31 07:02] VITALS: BP 211/120; PULSE 97
[2023-12-31] MEDS: ENALAPRIL 5 MG TABLET 10 MG PO (07:02)
--- NOTE | 2023-12-31 07:59 | P.PN_ITS ---
Subjective Subjective Date Patient Seen: 12/31/23 Time Patient Seen: 07:59 Interval history: Patient's pain is mild. Denies any fever or chills. No nausea or vomiting. Patient has 3 steps into his house. Patient has his home to assist him. Exam Vital Signs (past 8 hours): - 12/31/23 07:02 Pulse Rate 97 H Blood Pressure 211/120 H Oxygen Delivery Method Room Air Oxygen Flow Rate 0 Narrative Exam Narrative: 78-year-old male resting comfortably in bed in no apparent distress. Dressing is clean, dry and intact. Motor functions intact bilateral lower extremities. Sensation grossly intact to light touch bilateral lower extremities. Const General: cooperative and comfortable Nutritional Appearance: average body habitus Orientation: alert Chest Chest: normal inspection of the chest and normal palpation of entire chest wall [facility] Medical History (Updated 12/25/23 @ 13:14 by Nesha Camara RN) History of COVID-19 (2020) Situational anxiety BCC (basal cell carcinoma) Spinal stenosis Kidney stone HTN (hypertension) Surgical History (Updated 12/25/23 @ 13:06 by Nesha Camara RN) Hx of lithotripsy S/P TURP (status post transurethral resection of prostate) (09/2022) S/P TURP (status post transurethral resection of prostate) (~2019) Social History (System 06/05/22 @ 07:17 by Lady Valeria Colón) household members: spouse Smoking Status: Never smoker alcohol intake: never Assessment & Plan Post-op Postoperative Procedures: Procedures Operation Date: 12/30/23 07:45 Actual Procedure Side Surgeon p L4-5 TLIF, L5-S1 hemilaminectomy Not Applicable Fernie Diaz MD Postoperative day: 1 Postoperative status: doing well Postoperative plan: routine post-op care Postoperative plan narrative: Patient will mobilize with physical therapy this morning. Limit bending, twisting, lifting Disposition, likely later this morning or this afternoon depending on his mobility with physical therapy. Quality VTE Deep Vein Thrombosis/Pulmonary Embolism Present on Admission: No
[2023-12-31 08:00] VITALS: BP 155/83; PULSE 63; RESP 16; TEMP 36.8; O2SAT 98
--- NOTE | 2023-12-31 08:55 | PT.IPTN ---
Current Diagnoses Spinal stenosis, lumbar region without neurogenic claudication (12/30/23) Spinal stenosis, lumbar region with neurogenic claudication (12/30/23) Surgery Performed Operation Date: 12/30/23 07:45 Actual Procedures p L4-5 TLIF, L5-S1 hemilaminectomy(Not Applicable) - Fernie Diaz MD Physical Therapy Treatment Note M2 PT-IP Current Condition Start: 12/30/23 12:05 Freq: NEEDED Status: Active Protocol: Document 12/30/23 12:04 MB (Rec: 12/30/23 12:49 MB [id number]) Physical Therapy Current Condition Current Condition Evaluation Date 12/30/23 Treatment Diagnosis S/p TLIF M3 PT-IP Subjective Start: 12/30/23 12:05 Freq: NEEDED Status: Active Protocol: Document 12/31/23 09:22 TS (Rec: 12/31/23 09:36 TS [id number]) Subjective Physical Therapy Visit Type Type Treatment Note Visit Start Time 08:55 Visit Stop Time 09:20 Notes During ambulation pt reports chest pain and SOB. BP 208/97 sitting. Number of FRUIT VENDOR Visits 1 Physical Therapy Visit Comments Patient Comments Pt found resting in bed, nursing in room, pt is agreeable to PT. Therapy Pain Assessment Pain When Pain Assessed At Rest Pain Present Pain Present Pain Reported M4 PT-IP Mobility and Gait Start: 12/30/23 12:05 Freq: NEEDED Status: Active Protocol: Document 12/31/23 09:22 TS (Rec: 12/31/23 09:36 TS [id number]) PT-Bed Mobility Assessment Rolling Level of Assist Standby Assistance Supine to Sit Supine to Sit Standby Assistance Scooting Scooting to Edge of Bed Standby Assistance PT-Transfer Assessment Sit to and From Stand Sit to and from Stand Standby Assistance Equipment Transfer Assistive Device None Orthotic/Prosthetic Devices or Brace: No Comments Mobility Comments Logroll to L side SBA, demonstrates good carryover of technique. Supine to sit SBA with BUE support and good awareness of spinal precautions. STS from bed SBA with no AD, pt is impulsive to move before therapist is ready. He ambulated ~200'SBA with FWW with cecelia thru gait and normal pacing. He performed steps x3 step over step with use of B handrails. When ambulating back to room pt reports some SOB and chest pains. BP in sitting 208/97, HR 115, Spo2 99%. Pt sat EOB for ~5mins, symptoms seem to begin to decrease. Pt was left sitting EOB, nursing notified of BP and symptoms. Gait Assessment Gait Gait Assistance Required: Standby Assistance,1 Person Assist Distance (Feet) 200 Able to Maintain Weight Bearing Status Yes During Gait Assistive Devices Assistive Device Gait Belt,Front Wheeled Walker Orthotic/Prosthetic Devices or Brace: No Gait Deviations General Gait Pattern Antalgic,Decreased Stride Length,Decreased Feet Clearance,Flexed Trunk,Wide Based Gait Factors Limiting Gait Function Factors Limiting Gait Function Respiratory Distress Comments Gait Comments See mobility comments Stair Climbing Assessment Evaluation Level of Assist On Stairs Standby Assistance Devices Stair Climbing Assistive Devices Left Railing,Right Railing Technique/Endurance Stair Climbing Direction Ascend and Descend Stair Climbing Technique Step Over Step Number of Steps Climbed 3 PT-Balance Assessment Sitting Balance and Reactions Static Sitting Balance Ability Good Dynamic Sitting Balance Ability Fair Standing Balance and Reactions Static Standing Balance Ability Fair Dynamic Standing Balance Ability Fair Device Used RW M5 PT-IP Objective Assessments Start: 12/30/23 12:05 Freq: NEEDED Status: Active Protocol: Document 12/30/23 12:04 MB (Rec: 12/30/23 12:49 MB [id number]) Orientation Orientation/Cognition Level of Alertness Lethargic Orientation Name,Age,Birthday,Month,Date, Year,Day of Week,Place, Situation Language Function Ability No Deficits Noted Safety Awareness Decreased Safety Awareness Memory Description No Deficits Noted Comments Pt is lethargic though oriented, does repeat himself occ Gross Range of Motion Upper Extremity ROM Impairments Defer to OT Lower Extremity ROM Assessment Within Functional Limits Strength Comments Strength Comments MMT deferred this afternoon as pt just arrives to floor post -op Sensation Assessment Comments Sensation Comments Pt reports B toe tingling at baseline that is better post- op M6 PT-IP Treatment Start: 12/30/23 12:05 Freq: NEEDED Status: Active Protocol: Document 12/31/23 09:22 TS (Rec: 12/31/23 09:36 TS [id number]) Physical Therapy Treatment Education Education Provided Precautions,Weight Bearing Status,Post-Op Packet,Safety Other Treatments Other Treatment Performed Back precautions, log roll, Elevated BP M7 PT-IP Assessment and Plan Start: 04/15/24 12:05 Freq: NEEDED Status: Active Protocol: Document 12/31/23 09:22 TS (Rec: 12/31/23 09:36 TS [id number]) PT Summary Assessment and Plan Potential Rehabilitation Potential Good Summary Impairments Pain,ROM,Strength,Balance, Sensation,Bed Mobility, Transfers,Gait,Activity Tolerance Progress Towards Goals Progressing Toward Goals Assessment Summary John is making good progress with his mobility. He is SBA for all bed mobility and demonstrates good awareness of his spinal precautions. He progressed his gait to ~200' SBA with FWW. He performed steps x3 SBA with B handrails step over step. Pt is somewhat limited by SOB and pain in chest, BP is elevated and nursing was notified. PT is recommending he return home with assist. Goals Bed Mobility Goal Independent Transfer Goal Independent,Front Wheeled Walker Gait Goal Independent,Front Wheel Walker Gait Distance 100 Days to Meet Goals 3 Frequency of Treatment Frequency Of Treatment Twice a Day Treatment Plan Physical Therapy Treatment Plan Bed Mobility Training,Transfer Training,Gait Training, Therapeutic Exercise,Balance Retraining,Post Op Education, Discharge Planning,Hot or Cold Pack,Neuromuscular Re-ed, Coordination Retraining,Manual Therapy Precautions Lumbar Precautions Log Roll,No Twisting,Limit Bending,Lifting Restriction of 10 lbs,Gait Belt above Incisional Area Weight Bearing Status Weight Bearing Status Weight Bear as Tolerated Recommendations To Nursing Amount of Assist Needed Standby Assistance Discharge Recommendations PT Discharge Recommendations Home with Assistance, Outpatient PT Transportation Needs at Discharge Private Vehicle
[2023-12-31] MEDS: DOCUSATE 100 MG CAPSULE PO (08:58)
[2023-12-31] MEDS: ACETAMINOPHEN 325 MG TABLET 650 MG PO (08:58)
--- NOTE | 2023-12-31 09:27 | DI.RAD.S_ITS ---
PROCEDURE: XR CHEST 2V INDICATIONS: chest pain TECHNIQUE: 2 views of the chest were acquired. COMPARISON: [facility], CR, XR CHEST 2V, 10/24/2023, 13:55. FINDINGS: Surgical changes and devices: None. Lungs and pleura: Lungs are clear. No pleural effusions or pneumothorax. Mediastinum: Mediastinal contours are normal. Heart size is normal. Bones and chest wall: No suspicious bony abnormalities. Soft tissues appear unremarkable. IMPRESSION: No acute cardiopulmonary abnormality is seen. Dictated by: Breanne Honeycutt M.D. on 12/31/2023 at 10:29 Approved by: Breanne Honeycutt M.D. on 12/31/2023 at 10:29
[2023-12-31] MEDS: OXYCODONE IR 10 MG TABLET PO (09:39)
[2023-12-31 10:17] LABS: Hematocrit 33.2 % (41-53); Hemoglobin 11.2 g/dL (13.5-17.5)
[2023-12-31 10:33] LABS: BUN Creatinine Ratio 19.2 (6-22); Blood Urea Nitrogen 25 mg/dL (9-20); Calcium 9.3 mg/dL (8.4-10.2); Carbon Dioxide 26 mmol/L (22-32); Chloride 105 mmol/L (98-107); Creatine Kinase 344 U/L (55-170); Estimated Glomerular Filt Rate 57 mL/min (>60); Glucose 152 mg/dL (80-110); HEMOLYSIS < 15 (0-50); Potassium 4.5 mmol/L (3.4-5.1); Sodium 137 mmol/L (137-145)
[2023-12-31 10:46] LABS: Troponin I < 0.012 ng/mL (0.01-0.034)
[2023-12-31 12:00] VITALS: BP 130/64; BP 140/69; PULSE 57; PULSE 66; RESP 16; TEMP 36.9; O2SAT 100
--- NOTE | 2023-12-31 12:22 | PC.NURSE ---
Patient called out with Chest pain during PT this a.m., assigned RN on break. At this time 0905 a.m. BP 208/80 HR 80's. Called RT for STAT EKG, ordered STAT CXRAY, Troponin, and BMP. MD MADRID notified and upon return call CP had resolved and patient states he had eaten a big meal, SBP returned to 140's, and he denied any further symtptoms. Per MD MADRID no new orders at this time, pending troponins- (negative). Endorsed occurrence to returning floor.
--- NOTE | 2023-12-31 14:23 | PM.DS.1 ---
History of Present Illness History of Present Illness Date Patient Seen: 12/31/23 Time Patient Seen: 14:23 Chief complaint: Back pain Narrative: See progress Discharge Providers Provider Date of admission: 12/30/23 06:04 Discharge Date: 12/31/23 Primary care physician: Kathleen Velásquez PA-C Consults: 12/30/23 11:57 Consult to Occupational Therapy Evaluate & Treat Comment: Physician Instructions: Evaluate and treat Consult to Physical Therapy Evaluate & Treat Comment: Physician Instructions: Evaluate and Treat Discharge provider: Kevin Benjamin PA-C Summary Hospital Course Discharge Diagnosis: 1. L4-5, L5-S1 spinal stenosis with neurogenic claudication 2. L4-5, L5-S1 foraminal stenosis Hospital Course: 1. L4-5 Postero-lateral and posterior interbody fusion 2. L4-5 interbody cage placement. 3. L4-5 decompressive laminectomy with bilateral facetecomies 4. L4-5 Posterior non-segmental instrumentation 5. L5-S1 right hemilaminectomy 6. Hester of bone marrow from iliac crest 7. Utilization of microsurgical technique and operating microscope Same procedure as scheduled: Yes Indications: Patient has been having chronic back pain and worsening lumbar radiculopathy and symptoms of neurogenic claudication. Patient was found have severe spinal stenosis centrally and in the neural foramen at L4-5 level and with lateral recess stenosis at L5-S1 level correlating with his symptoms. Patient failed multiple conservative management with worsening pain weakness and numbness in his lower extremity. Patient has been having difficulty performing activity of daily living. After discussing risks benefits of treatment options, patient elected proceed with surgery. Surgeon: Fernie Diaz Surgical Device Sales Representative: Nataliya Walton Click Yes if Unassisted: No Anesthesia Type: General Operative Notes Closure Type: primary Specimen(s): none sent Prosthetic devices, grafts, tissues, transplants, or devices: Globus revolve screws, Rise cage Estimated Blood Loss (mL): 50 Blood products transfused: none Patient admitted to the hospital for the above-mentioned procedure. Patient consented to the same. Patient underwent L4-L5 fusion December 30, 2023. Patient back in his room in stable condition. Patient apparently describe chest pain when getting up with physical therapy this morning. The nurse contacted Dr. Kyle who ordered a chest x-ray EKG and labs. Chest x-ray shows no acute cardiopulmonary abnormality. Troponin within normal limits at 0.012 Patient mobilize with physical therapy remained stable no chest pain he has been cleared by Physical therapy to be discharged home. Patient has his home to assist him. Exam Vital Signs (past 8 hours): - 12/31/23 07:00 12/31/23 07:02 12/31/23 08:00 Temperature 98.3 F Pulse Rate 97 H 63 Respiratory Rate 16 Blood Pressure 211/120 H 155/83 H Pulse Oximetry 98 Oxygen Delivery Method Room Air Oxygen Flow Rate 0 12/31/23 12:00 12/31/23 12:00 Temperature 98.5 F Pulse Rate 66 57 L Respiratory Rate 16 Blood Pressure 140/69 130/64 Pulse Oximetry 100 Oxygen Delivery Method Oxygen Flow Rate 0 Oxygen Delivery Method Room Air Oxygen Flow Rate 0 Narrative Exam Narrative: See progress note Objective Labs 12/31/23 10:02 12/31/23 10:02 Labs: Laboratory Results - last 24 hr 12/31/23 10:02 Hgb 11.2 L Hct 33.2 L Sodium 137 Potassium 4.5 Chloride 105 Carbon Dioxide 26 BUN 25 H Creatinine 1.30 H Estimated GFR 57 L BUN/Creatinine Ratio 19.2 Glucose 152 H Calcium 9.3 Total Creatine Kinase 344 H Troponin I < 0.012 PFSH Medical History (Updated 12/25/23 @ 13:14 by Nesha Camara RN) History of COVID-19 (2020) Situational anxiety BCC (basal cell carcinoma) Spinal stenosis Kidney stone HTN (hypertension) Surgical History (Updated 12/25/23 @ 13:06 by Nesha Camara RN) Hx of lithotripsy S/P TURP (status post transurethral resection of prostate) (09/2022) S/P TURP (status post transurethral resection of prostate) (~2019) Social History (System 06/05/22 @ 07:17 by Lady Valeria Colón) household members: spouse Smoking Status: Never smoker alcohol intake: never Discharge Assessment & Plan Assessment and Plan Assessment: Stable status post L4-L5 fusion, L5-S1 right hemilaminectomy Plan of Treatment: Weight-bearing as tolerated, limit bending, twisting, lifting Multimodal pain management Follow up outpatient orthopedic clinic for 2 week postop appointment Follow up with primary care provider regarding chest pain Discharge home today in stable condition. Discharge Plan Discharge Plan Patient Disposition: Home Discharge orders & Medications Prescriptions: New acetaminophen 325 mg Tablet 650 mg PO Q6H PRN (Reason: Fever/Mild Pain (1-3)) Qty: 60 0RF oxycodone 10 mg Tablet 5 mg PO Q4H PRN (Reason: Pain, Severe (7-10)) Qty: 40 0RF Continued enalapril maleate [Vasotec] 10 mg Tablet 10 mg PO DAILY Follow up/Referrals: Kathleen Velásquez PA-C [Primary Care Provider] - Fernie Diaz MD [Physician] - 01/16/24 10:40 am (Follow up w/ Nataliya Walton PA-C, at [facility] office in [place].) Diet/Activity/Treatments Diet: Diet as Tolerated Activity: No deep bending or twisting at the waist. No lifting more than 10 pounds. Cold/Heat Therapy: Heating pad to low back as needed for pain. Skin/Wound/Dressing Care Report to your healthcare provider any signs of infection, such as:: chills, fever, night sweats, unusual drainage and unusual redness Dressing: May shower; keep dressing as dry as possible. If dressing becomes wet or dirty, may remove and replace with clean, dry gauze. No bathing or otherwise soaking incisions. Do not apply any creams, lotions, or ointments to incisions. Visit Report/Discharge Packet Instructions: Recommendations to Help Prevent High Blood Pressure, DI for Constipation, How to Prevent Falls, DI for Chest Pain, DI for Prescription Opioid Use, How to Monitor Your Blood Pressure at Home, DI for Transforaminal Lumbar Interbody Fusion Stand Alone Forms: Patient Portal/API, Stroke Signs & Symptoms, Surgery Discharge Discharge Data Primary Care Provider: Kathleen Velásquez Quality VTE Deep Vein Thrombosis/Pulmonary Embolism Present on Admission: No
--- NOTE | 2023-12-31 14:52 | PT-IP ANOTE ---
Pt to d/c this afternoon, has no PT needs.
--- NOTE | 2023-12-31 15:08 | OT.IP.TRT ---
Current Diagnoses Spinal stenosis, lumbar region without neurogenic claudication (12/30/23) Spinal stenosis, lumbar region with neurogenic claudication (12/30/23) Surgery Performed Operation Date: 12/30/23 07:45 Actual Procedures p L4-5 TLIF, L5-S1 hemilaminectomy(Not Applicable) - Fernie Diaz MD Occupational Therapy Treatment Note M2 OT-IP Current Condition Start: 12/30/23 16:10 Freq: Status: Active Protocol: Document 12/30/23 16:10 [facility] (Rec: 12/30/23 16:32 [facility] [id number]) Occupational Therapy Current Condition Current Condition Evaluation Date 12/30/23 Treatment Diagnosis S/P L4-5 TLIF, L5-S1 hemilaminectomy Diagnosis Onset Date 12/30/23 Post Operative Precautions Lumbar Precautions Log Roll,No Twisting,Limit Bending,Lifting Restriction of 10 lbs,Gait Belt above Incisional Area M3 OT- IP Subjective and Pain Start: 12/30/23 16:10 Freq: Status: Active Protocol: Document 12/31/23 15:08 [facility] (Rec: 12/31/23 15:14 [facility] [id number]) OT- Subjective Occupational Therapy Visit Type Type Treatment Note Visit Start Time 14:59 Visit Stop Time 15:08 Occupational Therapy Visit Comments Patient Comments Pt agreed to get dressed. Patient/Caregiver Goals TO go home. M4 OT- IP ADL's Start: 12/30/23 16:10 Freq: Status: Active Protocol: Document 12/31/23 15:08 [facility] (Rec: 12/31/23 15:14 [facility] [id number]) OT ADL-Dressing Comments OT Dressing Comments Re-educated pt to use air traffic control specialist /sock aid to assist with LB dressing needs otherwise to get his to assist. Pt not wanting to practice and just wanting his to assist him . M5 OT- IP IADL's Start: 12/30/23 16:10 Freq: Status: Active Protocol: Document 12/30/23 16:10 [facility] (Rec: 12/30/23 16:32 [facility] [id number]) OT-Instrumental Activities of Daily Living Deficits IADL Deficits Identified Deficits Home Safety Awareness Awareness of Need for Assistance at Home Good Awareness Ability to Problem Solve Emergency Able to Problem Solve Situations Home Safety Comments Pt a little groggy at this time and his to provide assist at home. Medication Management Medication Management Comments Best to have assist as pt is groggy. Money Management Money Management Comments Best to have assist as pt is groggy. Meal Preparation Meal Preparation Caregiver Provides Assist Senior Php Developer Senior Php Developer Caregiver Provides Assist M6 OT- IP Functional Cognition Start: 12/30/23 16:10 Freq: Status: Active Protocol: Document 12/30/23 16:10 [facility] (Rec: 12/30/23 16:32 [facility] [id number]) Cognitive Factors Limiting Selfcare Function Cognitive Ability Level of Alertness Alert,Drowsy Patient Orientation Name,Place,Situation Attention Span Ability Capable of Focused Attention, Capable of Sustained Attention Ability to Follow Commands Able to Follow One Step Commands with Increased Time, Able to Follow One Step Commands with Repetition Cognitive Comments Cognitive Assessment Comments Pt a little groggy and needing safety cues for log rolling and sit to stand to FWW. Able to educate his for gait belt management and how to assist for ADL and mobility needs. OT- Vision and Hearing OT- Hearing Assessment OT- Hearing Assessment WFL OT- Vision Assessment Visual Acuity WFL M7 OT- IP Mobility and Balance Start: 12/30/23 16:10 Freq: Status: Active Protocol: Document 12/31/23 15:08 [facility] (Rec: 12/31/23 15:14 [facility] [id number]) OT-Transfer Assessment Comments Mobility Comments Pt insistent that he is fine to walk without the FWW and then to be a little impulsive and twist. Suggested the walker can be beneficial for uneven ground and remind him to slow down. Pt states will just use his walking stick. OT- Balance Assessment Sitting Balance and Reactions Static Sitting Balance Ability Normal Dynamic Sitting Balance Ability Good Standing Balance and Reactions Static Standing Balance Ability Good Dynamic Standing Balance Ability Fair Comments Other Balance Tests/Deviations/Treatment Pt not using a device and able : to walk but a little unsteady on his feet and tends to twist. M8 OT- IP Objective Assessments Start: 12/30/23 16:10 Freq: Status: Active Protocol: Document 12/30/23 16:10 [facility] (Rec: 12/30/23 16:32 [facility] [id number]) OT Gross Range of Motion Upper Extremity Range of Motion Assessment Within Functional Limits OT Strength Upper Extremity Strength Assessment Within Functional Limits OT-Muscle Tone Assessment Muscle Tone WNL Yes M9 OT- IP Assessment and Plan Start: 12/30/23 16:10 Freq: Status: Active Protocol: Document 12/31/23 15:08 [facility] (Rec: 12/31/23 15:14 [facility] [id number]) OT Summary Assessment and Plan Potential Rehabilitation Potential Excellent Analytic Complexity at Evaluation Low Summary OT Impairments Pain,Strength,Balance, Functional Mobility,Dressing, Toileting,Bathing,Toilet Transfers,Shower Transfers Progress Towards Goals Progressing Toward Goals Assessment Summary Pt needing safety cues to follow his back precautions for ADl and mobility needs. Pt has a very supportive to assist with his needs at home . Pt would benefit frm LB dressing equipment, shower chair and FWW/walking stick as needed. Goals Grooming Goal Independent Dressing Goal Independent,Instrument Operator,Sock Aid Toileting Goal Independent Bathing Goal Standby Assistance Toilet Transfer Goal Independent Shower Transfer Goal Standby Assistance Patient/Caregiver Education Goal Caregiver Independent Assisting Patient Days to Meet Goals 3 Frequency of Treatment Frequency Of Treatment Once a Day Treatment Plan OT Treatment Plan ADL Training,Functional Mobility,Patient/Family Education,Discharge Planning Discharge Recommendations OT Discharge Recommendations Home with Assistance Home Equipment Needs BSC?,LB dressing equipment, shower chair Transportation Needs at Discharge Private Vehicle
--- NOTE | 2023-12-31 16:28 | PC.NURSE ---
Discharge: Pt had an episode of c/p while amb today and working with physical therapy. MD was notified. Pain was mid sternal. He had received his vasotec this am for his elevated blood pressure. This happened to me 2 years ago. I stopped my vasotec and the same thing happened then. Exact same type of pain in my chest. MD Diaz made aware of c/p. Pt had stat ecg, x-ray, labs. All were normal. The patient would still like to go home today. LISA Benjamin called and notifed pt would like to go home. Dr. Diaz called and notified of results of studies. He also agrees the patient can go home. Pt has been seen by PT/OT and passed, he is safe for home and they reviewed there discharge information with him. Pt does know his back precautions and is following them. Lg bulky dressing to back changed to cover site, tai are clean and dry. No drainage. Minimal redness. Pt tolerates diet w/out problems. Has amb long distance in hallway. Vds w/out diff. Po pain medication has been minimal, pt reports it is effective. Reviewed discharge packet and questions answered. present at time of teaching. Pt d/c to home via auto with spouse. Voiced no concerns at time of discharge.
== END 2023-12-31 16:25 | disposition home or self-care (01) | DRG 455 ==
PROVIDERS: Admitting Provider Orthopaedic Surgery Orthopaedic Surgery of the Spine; PCP Student in an Organized Health Care Education/Training Program; Referring Provider Orthopaedic Surgery Orthopaedic Surgery of the Spine; Visit Provider Orthopaedic Surgery Orthopaedic Surgery of the Spine
PROC: 0SG00AJ Fusion of Lumbar Vertebral Joint with Interbody Fusion Device, Posterior Approach, Anterior Column, Open Approach (ICD-10-PCS; principal; 2023-12-30 07:45)
DX: M48.062 Spinal stenosis, lumbar region with neurogenic claudication (principal); M48.07 Spinal stenosis, lumbosacral region; M54.16 Radiculopathy, lumbar region; I12.9 Hypertensive chronic kidney disease with stage 1 through stage 4 chronic kidney disease, or unspecified chronic kidney disease; N18.2 Chronic kidney disease, stage 2 (mild); Z82.49 Family history of ischemic heart disease and other diseases of the circulatory system; Z82.79 Family history of other congenital malformations, deformations and chromosomal abnormalities; Z87.442 Personal history of urinary calculi
CPT/HCPCS: 36415; 71046; 72100; 76000; 80048; 82550; 84484; 85014; 85018; 93005; 97116; 97161; 97165; 97530; 97535; C1713; C9290; J0171; J0330; J0690; J1100; J1170; J1885; J2175; J2405; J2704; J3010; J3410